=== PATIENT | male | born 1985 | race Caucasian/White ===

== ENCOUNTER 2017-10-09 17:46 | Observation (INO) | payer MEDICARE, MEDICAID ==
[~2017-10-09] VITALS: Ht 185.4 cm; Wt 78.0 kg
[~2017-10-09 17:46] MED LIST: BUPR-173 PO; DEXT10TA7 PO; ESCI20TA10 PO; GABA300C10 PO
[2017-10-09] MEDS ORDERED: [UNRECOGNIZED DRUG - OTHER] (18:29)
[2017-10-09] MEDS ORDERED: DIAZ10TA PO (18:29)
[2017-10-09] MEDS ORDERED: TOPI50TA35 PO (18:29)
[2017-10-09 18:41] LABS: BASOPHILS # (AUTO) 0.04 x10^3/uL (0-0.1); BASOPHILS % (AUTO) 0 % (0-1); EOSINOPHILS # (AUTO) 0.18 x10^3/uL (0-0.4); EOSINOPHILS % (AUTO) 2 % (1-7); LYMPHOCYTES # (AUTO) 1.82 x10^3/uL (1-3.4); LYMPHOCYTES % (AUTO) 16 % (22-44); MD NO; MEAN CORPUSCULAR HEMOGLOBIN 30.9 pg (27.5-34.5); MEAN CORPUSCULAR HGB CONC 34.3 g/dL (33.2-36.2); MEAN CORPUSCULAR VOLUME 90.1 fL (81-97); MEAN PLATELET VOLUME 8.3 fL (7.4-10.4); MONOCYTES # (AUTO) 0.72 x10^3/uL (0.2-0.8); MONOCYTES % (AUTO) 6 % (2-9); NEUTROPHILS # (AUTO) 8.68 x10^3/uL (1.8-6.8); NEUTROPHILS % (AUTO) 76 % (42-75); PLATELET COUNT 257 x10^3/uL (130-400); RED BLOOD COUNT 4.99 x10^6/uL (4.38-5.82)
[2017-10-09 18:42] LABS: ALBUMIN 3.7 g/dL (3.4-5.0); ANION GAP 11 mmol/L (5-15); CALCIUM 8.5 mg/dL (8.5-10.1); CHLORIDE 112 mmol/L (98-107); CREATININE 1.04 mg/dL (0.7-1.3)
[2017-10-09 18:45] LABS: ACETAMINOPHEN < 2 mcg/mL (10-30); SALICYLATE LEVEL < 1.7 mg/dL (2.8-20.0)
[2017-10-09 19:37] LABS: AMPHETAMINE SCREEN, URINE Positive (Negative); BARBITURATE SCREEN, URINE Negative (Negative); BENZODIAZEPINE SCREEN, URINE Negative (Negative); CANNABINOID SCREEN, URINE Negative (Negative); COCAINE SCREEN, URINE Negative (Negative); METHADONE SCREEN, URINE Negative (Negative); OPIATE SCREEN, URINE Negative (Negative)
[2017-10-09] MEDS ORDERED: ACETAMINOPHEN 325 MG TABLET PO PRN (20:30)
[2017-10-09] MEDS ORDERED: POLYETHYLENE GLYCOL 17 GM PACKET PO PRN (20:30)
[2017-10-09] MEDS ORDERED: BISACODYL 10 MG SUPP PR PRN (20:30)
[2017-10-09] MEDS ORDERED: ONDANSETRON ODT 4 MG PO PRN (20:30)
[2017-10-09] MEDS ORDERED: NICOTINE 21 MG/24 HR PATCH.TD24 TD SCH (20:30)
[2017-10-09] MEDS ORDERED: DIAZEPAM 5 MG TABLET PO PRN (20:30)
[2017-10-09] MEDS: TOPIRAMATE 25 MG TABLET PO SCH (23:06)
[2017-10-10 07:46] VITALS: BP 120/67
[2017-10-10] MEDS: TOPIRAMATE 25 MG TABLET PO SCH (08:20)
[2017-10-10] MEDS ORDERED: SENNA/DOCUSATE TABLET PO SCH (09:00)
== END 2017-10-10 18:26 ==
LOC: ED 18:31 → EDIP 20:03 → 3E 20:56
PROVIDERS: ADMIT Hospitalist; ATTEND Hospitalist
DX: R45.851 Suicidal ideations (principal); F32.9 Major depressive disorder, single episode, unspecified; F90.9 Attention-deficit hyperactivity disorder, unspecified type; B20 Human immunodeficiency virus [HIV] disease; R51 Headache; E87.2 Acidosis; F15.10 Other stimulant abuse, uncomplicated; F98.8 Other specified behavioral and emotional disorders with onset usually occurring in childhood and adolescence; F17.210 Nicotine dependence, cigarettes, uncomplicated; Z91.5 Personal history of self-harm
CPT/HCPCS: 36415; 70450; 73630; 80048; 80074; 80307; 80329; 82040; 85025; 99285; G0378; G0480